=== PATIENT | female | born 1995 ===

== ENCOUNTER 2023-07-06 11:00 | Emergency (ER) | payer SELFPAY ==
[2023-07-06 11:35] LABS: APPEARANCE,URINE CLEAR; BILIRUBIN,URINE NEGATIVE (NEGATIVE); COLOR,URINE YELLOW; GLUCOSE,URINE NEGATIVE (NEGATIVE); KETONES,URINE NEGATIVE (NEGATIVE); LEUKOCYTE ESTERASE,URINE NEGATIVE (NEGATIVE); NITRITE,URINE NEGATIVE (NEGATIVE); OCCULT BLOOD,URINE NEGATIVE (NEGATIVE); PH,URINE 7.5 (5.0-8.0); PROTEIN,URINE NEGATIVE (NEGATIVE); UROBILINOGEN,URINE 0.2 EU/dL (<2.0)
[2023-07-06] MEDS: Acetaminophen 500 MG Tab PO STA (11:51)
[2023-07-06] MEDS: Ibuprofen 800 MG Tab PO STA (11:51)
[2023-07-06] MEDS: oxyCODONE 5 MG Tab PO STA (11:52)
[2023-07-06 12:43] LABS: CANDIDA DNA PROBE NEGATIVE (NEGATIVE); GARDNERELLA DNA PROBE POSITIVE (NEGATIVE); TRICHOMONAS DNA PROBE NEGATIVE (NEGATIVE)
== END 2023-07-06 13:46 | disposition home or self-care (01) ==
LOC: MW.ED 11:00
DX: N83.202 Unspecified ovarian cyst, left side (principal); N76.0 Acute vaginitis; Z97.5 Presence of (intrauterine) contraceptive device; Z91.013 Allergy to seafood; Z79.899 Other long term (current) drug therapy; Z75.8 Other problems related to medical facilities and other health care
CPT/HCPCS: 76830; 81003; 81025; 87480; 87510; 87660; 99284; A9270; 99283